=== PATIENT | male | born 1980 | race Caucasian/White ===

== ENCOUNTER 2017-09-18 21:34 | Emergency (ER) | payer OTHER ==
[~2017-09-18] VITALS: Ht 182.9 cm; Wt 83.5 kg
[2017-09-19] MEDS ORDERED: LIDODERM 5% P1 PATCH TD (01:17)
[2017-09-19] MEDS ORDERED: NORCO 7.5/321 TABLET PO (01:17)
[2017-09-19] MEDS ORDERED: MOTRIN800 MG PO (01:17)
[2017-09-19] MEDS ORDERED: VALIUM5 MG PO (01:17)
[2017-09-19 01:27] VITALS: BP 142/104
== END 2017-09-19 01:41 | disposition home or self-care (01) ==
LOC: EME 21:34
DX: S29.012A Strain of muscle and tendon of back wall of thorax, initial encounter (principal); S60.221A Contusion of right hand, initial encounter; S39.012A Strain of muscle, fascia and tendon of lower back, initial encounter; V89.9XXA Person injured in unspecified vehicle accident, initial encounter; Y92.410 Unspecified street and highway as the place of occurrence of the external cause
CPT/HCPCS: 72070; 72100; 73140; 99281; 99284; J3010